=== PATIENT | female | born 1990 | race Caucasian/White ===

== ENCOUNTER → 2017-06-15 | Outpatient (REF) | payer BC | LOC: M LAB REF 08:39 | PROVIDERS: ATTEND Physician Assistant Surgical | DX: J02.9 Acute pharyngitis, unspecified (principal) ==

== ENCOUNTER → 2017-11-18 | Outpatient (REF) | payer MEDICAID, OTHER, SELFPAY | LOC: M SFHCLERA 19:28 | DX: R10.9 Unspecified abdominal pain (principal) | CPT/HCPCS: 87086 ==

== ENCOUNTER → 2017-12-09 | Outpatient (CLI) | payer MEDICAID ==
[2017-12-09 13:54] LABS: BASO % 0.2 % (0.0-1.0); EOS # 0.1 10^3/uL (0.0-0.50); EOS % 0.6 % (0.0-3.0); HEMATOCRIT 37.6 % (36.0-47.0); IMMATURE GRANULOCYTE % 0.4 % (0-3.0); LYMPH # 2.5 10^3/uL (1.5-6.5); LYMPH % 29.8 % (24.0-44.0); MEAN CORPUSCULAR HEMOGLOBIN 30.2 pg (27.0-33.0); MEAN CORPUSCULAR HGB CONC 34.6 g/dl (32.0-36.5); MEAN CORPUSCULAR VOLUME 87.2 fl (80.0-96.0); MONO # 0.6 10^3/uL (0.0-0.8); MONO % 6.6 % (0.0-5.0); NEUTROPHILS # 5.2 10^3/uL (1.8-7.7); NEUTROPHILS % 62.4 % (36.0-66.0); PLATELET COUNT, AUTOMATED 230 10^3/uL (150-450); RED BLOOD COUNT 4.31 10^6/uL (4.00-5.40); RED CELL DISTRIBUTION WIDTH 12.9 % (11.5-14.5); WHITE BLOOD COUNT 8.4 10^3/uL (4.0-10.0)
[2017-12-09 14:26] LABS: RUBELLA IgG QUALITATIVE IMMUNE (IMMUNE)
[2017-12-09 14:55] LABS: HIV 1&2 SCREEN CENTAUR NEGATIVE (NEGATIVE)
[2017-12-09 14:55] LABS: HEPATITIS C VIRUS ABY INDEX < 0.0 INDEX (<0.8)
[2017-12-09 14:56] LABS: HBsAg Prenatal NEGATIVE (NEGATIVE)
[2017-12-09 15:12] LABS: CHLAMYDIA DNA AMPLIFICATION NEGATIVE (NEGATIVE); GC DNA AMPLIFICATION NEGATIVE (NEGATIVE)
== END ==
LOC: M SMT 08:35
DX: Z34.81 Encounter for supervision of other normal pregnancy, first trimester (principal); Z3A.10 10 weeks gestation of pregnancy
CPT/HCPCS: 86762

== ENCOUNTER → 2018-02-12 | Outpatient (CLI) | payer OTHER | LOC: M RAD 15:30 | DX: Z34.82 Encounter for supervision of other normal pregnancy, second trimester (principal); Z36.89 Encounter for other specified antenatal screening; Z3A.18 18 weeks gestation of pregnancy | CPT/HCPCS: 76811 ==

== ENCOUNTER → 2018-04-10 | Outpatient (CLI) | payer OTHER | LOC: M RAD 17:23 | DX: Z34.82 Encounter for supervision of other normal pregnancy, second trimester (principal) | CPT/HCPCS: 76816 ==

== ENCOUNTER → 2018-05-08 | Outpatient (CLI) | payer OTHER | LOC: M RAD 16:15 | DX: Z34.02 Encounter for supervision of normal first pregnancy, second trimester (principal); Z36.89 Encounter for other specified antenatal screening; Z3A.31 31 weeks gestation of pregnancy | CPT/HCPCS: 76816 ==

== ENCOUNTER → 2018-06-09 | Outpatient (REF) | payer OTHER, MEDICAID | LOC: M LAB REF 13:07 | DX: Z34.03 Encounter for supervision of normal first pregnancy, third trimester (principal) ==

== ENCOUNTER 2018-07-12 06:45 | Inpatient (IN) | payer OTHER, MEDICAID ==
[2018-07-12 08:06] LABS: HEMATOCRIT 33.1 % (36.0-47.0); MEAN CORPUSCULAR HEMOGLOBIN 28.6 pg (27.0-33.0); MEAN CORPUSCULAR HGB CONC 33.2 g/dl (32.0-36.5); MEAN CORPUSCULAR VOLUME 86.2 fl (80.0-96.0); PLATELET COUNT, AUTOMATED 245 10^3/uL (150-450); RED BLOOD COUNT 3.84 10^6/uL (4.00-5.40); RED CELL DISTRIBUTION WIDTH 14.2 % (11.5-14.5)
[2018-07-12] MEDS: LACTATED RINGER'S 1000 ML IV (10:09)
[2018-07-12] MEDS: miSOPROStol 50 MCG 1/2 TAB (S0191) SL (10:37)
[2018-07-12] MEDS: LR 1,000 ML IV ×2 (16:07→20:13)
[2018-07-12] MEDS: OXYTOCIN DRIP 30 UNITS in APPROPRIATE DILUENT 1 EA IV ×2 (16:17→23:16)
[2018-07-12] MEDS ORDERED: ePHEDrine SULFATE 25 MG/5 ML(5MG/ML) SYRINGE IV (17:15)
[2018-07-12] MEDS ORDERED: ONDANSETRON 4MG/2ML VIAL (J2405) IV ×2 (17:15→23:30)
[2018-07-12] MEDS ORDERED: REFRIGERATOR IV KEYS XX (17:15)
[2018-07-12] MEDS ORDERED: LACTATED RINGER'S 1000 ML IV (17:15)
[2018-07-12] MEDS ORDERED: diphenhydrAMINE INJ 50MG/ML VIAL (J1200) IV (17:15)
[2018-07-12] MEDS ORDERED: NALOXONE INJ 0.4 MG/1 ML VIAL (J2310) IV (17:15)
[2018-07-12] MEDS ORDERED: EPIDURAL COMMENT XX (17:15)
[2018-07-12] MEDS ORDERED: EPIDURAL/PCA KEYS XX (17:15)
[2018-07-12] MEDS: FENTANYL/ROPIVACAINE/NACL BAG 100 ML EPIDURAL (17:36)
[2018-07-12] MEDS ORDERED: LR 1,000 ML IV (23:16)
[2018-07-12] MEDS ORDERED: PROMETHAZINE 25 MG TAB PO (23:30)
[2018-07-12] MEDS ORDERED: DOCUSATE SODIUM 100 MG CAP PO (23:30)
[2018-07-13] MEDS: IBUPROFEN 800 MG TAB PO ×2 (02:14→15:55)
[2018-07-13] MEDS: DIBUCAINE 1% OINTMENT 30GM TOP (03:06)
[2018-07-13] MEDS: ACETAMINOPHEN 500 MG TAB PO ×2 (05:43→17:25)
[2018-07-13] MEDS ORDERED: OXYTOCIN 30 UNITS IN 0.9% NaCl 500ML IV BAG (J2590) As Ordered (06:34)
[2018-07-13] MEDS: OXYTOCIN DRIP IV ×2 (06:39→10:30)
[2018-07-13] MEDS: DILUENT IV ×2 (06:39→10:30)
[2018-07-13] MEDS: PRENATAL VITAMINS CHEWABLE TABLET PO (09:55)
[2018-07-13] MEDS: RHOGAM 300 MCG (1500 IU) INJ (J2790) IM (18:01)
[2018-07-13] MEDS: MEASLES,MUMPS,RUBELLA VACCINE INJ (MMR-II) (90707) SC (18:01)
[2018-07-14] MEDS: PRENATAL VITAMINS CHEWABLE TABLET PO (07:12)
[2018-07-14] MEDS: IBUPROFEN 800 MG TAB PO (07:13)
== END 2018-07-14 10:45 | disposition home or self-care (01) | DRG 560 ==
LOC: M LDI 06:45 → M OBS 07-13 02:21
PROVIDERS: Obstetrics & Gynecology
PROC: 10E0XZZ Delivery of Products of Conception, External Approach (ICD-10-PCS; principal; 2018-07-12)
PROC: 0KQM0ZZ Repair Perineum Muscle, Open Approach (ICD-10-PCS; 2018-07-12)
PROC: 3E033VJ Introduction of Other Hormone into Peripheral Vein, Percutaneous Approach (ICD-10-PCS; 2018-07-12)
DX: O48.0 Post-term pregnancy (principal); O69.89X0 Labor and delivery complicated by other cord complications, not applicable or unspecified; Z37.0 Single live birth; Z3A.40 40 weeks gestation of pregnancy; O70.1 Second degree perineal laceration during delivery

== ENCOUNTER → 2018-10-28 | Outpatient (REF) | payer OTHER, MEDICAID ==
[~2018-10-28] MED LIST: IBUP-1114 PO; MAPA500T2 PO; PRENTAB9 PO
== END ==
LOC: M LAB REF 14:41
PROVIDERS: ATTEND Obstetrics & Gynecology
DX: Z12.4 Encounter for screening for malignant neoplasm of cervix (principal); R87.613 High grade squamous intraepithelial lesion on cytologic smear of cervix (HGSIL)

== ENCOUNTER → 2018-10-31 | Outpatient (REF) | payer OTHER, MEDICAID | LOC: M LAB REF 17:01 | PROVIDERS: ATTEND Obstetrics & Gynecology | DX: R87.613 High grade squamous intraepithelial lesion on cytologic smear of cervix (HGSIL) (principal); R87.612 Low grade squamous intraepithelial lesion on cytologic smear of cervix (LGSIL) ==